=== PATIENT | male | born 2000 | race Caucasian/White ===

== ENCOUNTER 2023-02-10 09:53 | Outpatient (AMB) | payer OTHER, SELFPAY ==
--- NOTE | 2023-02-10 09:59 | A.OFFVIS_ITS ---
Intake Vital Signs 02/10/23 10:00 Height 5 ft 11 in Weight 207 lb BMI 28.9 BP 110/64 Blood Pressure Location Lt brachial Position Sitting Pulse 71 Pulse Source Pulse Oximeter Pulse Oximetry (%) 97 Oxygen Delivery Method Room Air Intake Visit Reasons: Asthma Parasitologist Required: No Railroad Purchasing Agent: Railroad Purchasing Agent offered & declined Accompanied by: Self / Same As Patient Allergies peanuts Allergy (Severe, Uncoded 02/10/23 10:16) Vomiting, hives eggs Allergy (Intermediate, Uncoded 02/10/23 10:16) Vomiting, respiratory distress Medication List - Last Reconciled 02/10/23 by Masha Ortega LPN albuterol sulfate 90 mcg/actuation 2 puffs inhalation Q4-6H PRN fluticasone propionate 110 mcg/actuation 2 puffs inhalation BID HPI Asthma HPI Details Cory is a pleasant 22 year old male, never smoker, with underlying asthma. He was referred for pulmonary evaluation by his PCP. He reports asthma since childhood. Denies any hospitalizations related to asthma. He reports increased use of his albuterol inhaler and will use upwards of 4-5 times per day. He was previously on an ICS inhaler and PCP recently prescribed Flovent, but unfortunately his insurance denied coverage. He relates his increase in symptoms of chest tightness, cough and wheezing to environmental allergies. He denies any pets. He denies any recent allergy testing. He has been using rylan PRN and recently started using flonase nasal spray with minimal improvements. [facility] Social History (Updated 02/10/23 @ 10:06 by Masha Ortega LPN) Patient Tobacco Use Status: Never used Tobacco e-Cigarette/Vaping Use: Former Use Review of Systems Const Denies chills, Denies excessive sweating, Denies fever(s), Denies headache(s) and Denies night sweats Eyes Denies dry eyes ENT Reports Normal hearing present, Denies headache(s), Denies post nasal drip and Denies sore throat Card Denies chest pain, Denies chest pain at rest, Denies chest pain with activity, Denies claudication, Denies leg edema, Denies orthopnea and Denies paroxysmal nocturnal dyspnea Resp Denies chest congestion, Denies excessive phlegm production, Denies pain on inspiration, Denies pain with cough and Denies stridor Musc Denies myalgias Neuro Reports Normal hearing present and Denies headache(s) Endo Denies excessive sweating Terry/Lymph Denies lymphadenopathy Aller/Immun Denies seasonal rhinorrhea Physical Exam Vital Signs: Last Vital Signs Pulse 71 02/10/23 10:00 BP 110/64 02/10/23 10:00 Pulse Ox 97 02/10/23 10:00 Oxygen Delivery Method Room Air 02/10/23 10:00 BMI result Body Mass Index 28.9 Const General: cooperative, healthy appearing, comfortable, no acute distress, well developed and alert Orientation/consciousness: patient oriented x3 Limitations: no limitations HEENT Head: Yes normal to inspection, Yes normocephalic and Yes atraumatic Ears: hearing grossly normal bilaterally and external ears normal Eyes General: appearance normal, both eyes and all related structures Eyelids: Yes eyelids normal Sclerae: sclerae normal EOM: EOMs intact bilaterally Neck Neck: Yes normal visual inspection and Yes no lymphadenopathy Lymphatic: no lymphadenopathy noted Chest Chest palpation & inspection: normal inspection of the chest Resp Effort & Inspection: normal respiratory effort, able to speak in complete sentences, no audible wheezes, no cough, no stridor, not tachypneic, no tripod positioning and no use of accessory muscles Auscultation: clear to auscultation bilaterally Cardio Jugular venous distension: no JVD Rate: regular rate Rhythm: regular rhythm Skin Other: warm, dry General skin exam: no rashes or lesions noted Neuro General: patient oriented x3 Cranial nerves: Yes Normal hearing present Cognition (Neuro): normal cognition Gait exam (Neuro): Normal gait present Extrem General: Yes normal to inspection, Yes capillary refill normal, Yes no clubbing, cyanosis or edema and Yes no pedal edema Psych Appearance: grossly normal and well kempt Speech and movement: Normal speech and movement present and Clear speech present Affect: normal affect Attitude: cooperative Thought process: Normal thought process present Thought content: Normal thought content present Insight: Good insight present (Psych) Judgement: Good judgement present (Psych) Assessment & Plan Assessment & Plan (1) Allergic rhinitis: Code(s): J30.9 - Allergic rhinitis, unspecified (2) Asthma: Code(s): J45.909 - Unspecified asthma, uncomplicated Plan Cory's symptoms are likely related to underlying asthma with an allergic component. Will send for PFT and RAST to thoroughly evaluate. Will empirically trial on Breo and send refill on albuterol. Patient is aware if he is unable to picker tender medication due to insurance coverage, he will call. All questions were answered and patient is in agreement of plan. Will follow up ib 6 weeks to review response to inhaler and review PFT results. Orders: Orders Rast Allergen Today J30.9 - Allergic rhinitis, unspecified Immunoglobulin E Today J30.9 - Allergic rhinitis, unspecified PFT pulmonary function test Today J45.909 - Unspecified asthma, uncomplicated Complete Blood Count Auto Diff Today J30.9 - Allergic rhinitis, unspecified Medications: New fluticasone furoate-vilanterol 100-25 mcg/dose (Breo Ellipta) 1 inh inhalation DAILY 60 ea 3RF albuterol sulfate 90 mcg/actuation 2 puffs inhalation Q4-6H PRN 1 ea 3RF shortness of breath or wheezing Coding Level of Care Code New Pt Level 3 (02072) Diagnoses Allergic rhinitis J30.9 Asthma J45.909
[2023-02-10 10:00] VITALS: BP 110/64; PULSE 71; O2SAT 97; BMI 28.9
== END 2023-02-10 10:31 | disposition home or self-care (01) ==
LOC: HO.HPSW 09:53
PROVIDERS: PCP Internal Medicine; Referring Provider Internal Medicine; Visit Provider Nurse Practitioner Family
DX: J30.9 Allergic rhinitis, unspecified (principal); J45.909 Unspecified asthma, uncomplicated
CPT/HCPCS: 99203

== ENCOUNTER 2023-02-10 10:35 | Outpatient (REF) | payer OTHER, SELFPAY ==
[2023-02-10 14:28] LABS: MANUAL DIFF FLAG NO
[2023-02-10 14:45] LABS: Basophils Absolute Auto 0.1 X10*3/uL (0.0-0.2); Basophils Percent Auto 1.1 % (0-2); Eosinophils Percent Auto 18.8 % (0-4); Hematocrit 45.9 % (42.0-52.0); Hemoglobin 15.7 g/dl (14.0-18.0); Imm Gran Abs Auto 0.01 X10*3/uL (0.00-0.03); Imm Gran Pct Auto 0.2 % (0.0-0.4); Lymphocytes Absolute Auto 1.2 X10*3/uL (1.2-4.9); Lymphocytes Percent Auto 22.5 % (20-40); Mean Corpuscular HGB Conc 34.2 g/dl (31.0-36.0); Mean Corpuscular Hemoglobin 29.5 pg (27.0-33.0); Mean Corpuscular Volume 86.3 fL (80.0-98.0); Mean Platelet Volume 11.4 fL (9.4-12.4); Monocytes Absolute Auto 0.5 X10*3/uL (0.1-1.2); Monocytes Percent Auto 8.6 % (2-11); Neutrophils Absolute Auto 2.6 x10*3/uL (2.0-8.3); Neutrophils Percent Auto 48.8 % (45-73); Platelet Count 261 X10*3/uL (160-400); Red Blood Count 5.32 X10*6/uL (4.60-5.80); Red Cell Distribution Width 12.3 % (11.0-16.0); White Blood Count 5.4 X10*3/uL (4.8-10.8)
[2023-02-12 07:09] LABS: Immunoglobulin E 1003 kU/L (<OR=114)
== END 2023-02-10 10:36 | disposition home or self-care (01) ==
LOC: HO.WFDLDS 10:35
PROVIDERS: Visit Provider Nurse Practitioner Family
DX: J30.9 Allergic rhinitis, unspecified (principal); Z01.82 Encounter for allergy testing; Z91.048 Other nonmedicinal substance allergy status
CPT/HCPCS: 36415; 82785; 85025; 86003

== ENCOUNTER 2023-03-17 08:50 | Outpatient (REF) | payer OTHER, SELFPAY ==
--- NOTE | 2023-03-17 09:42 | PFT_ITS ---
Forced vital capacity 97%, FEV1 74%, FEV1/FVC ratio is 63. [id number] 43% and MVV 45%. Post bronchodilator therapy, there is no change. Total lung capacity 90%. Residual volume 53%. Diffusion capacity 91%. CONCLUSION: Mild obstructive airway disorder. No response to bronchodilator therapy. Clinical correlation recommended. MD JENIFFER Arora/ANAID / [id number]
== END 2023-03-17 08:51 | disposition home or self-care (01) ==
LOC: HO.RESP 08:50
PROVIDERS: PCP Internal Medicine; Visit Provider Nurse Practitioner Family
DX: J45.909 Unspecified asthma, uncomplicated (principal)
CPT/HCPCS: 94010; 94727; 94729

== ENCOUNTER → 2023-03-17 09:42 | Outpatient (BNV) | payer OTHER, SELFPAY | PROVIDERS: PCP Internal Medicine; Visit Provider Internal Medicine | DX: J45.909 Unspecified asthma, uncomplicated (principal) | CPT/HCPCS: 94060; 94727; 94729 ==

== ENCOUNTER 2023-03-25 08:29 | Outpatient (AMB) | payer OTHER, SELFPAY ==
[2023-03-25 08:37] VITALS: BP 118/68; PULSE 76; O2SAT 97; BMI 28.7
--- NOTE | 2023-03-25 08:37 | MHC.OFFVIS ---
Intake Vital Signs 03/25/23 08:37 Height 5 ft 11 in Weight 206 lb BMI 28.7 BP 118/68 Blood Pressure Location Rt brachial Position Sitting Pulse 76 Pulse Source Pulse Oximeter Pulse Oximetry (%) 97 Oxygen Delivery Method Room Air Intake Visit Reasons: 6 week f/u Career And Transition Teacher Required: No Colon Therapist: Colon Therapist offered & declined Accompanied by: Self / Same As Patient Allergies peanuts Allergy (Severe, Uncoded 03/25/23 08:43) Vomiting, hives eggs Allergy (Intermediate, Uncoded 03/25/23 08:43) Vomiting, respiratory distress Medication List - Last Reconciled 03/25/23 by Masha Ortega LPN albuterol sulfate 90 mcg/actuation 2 puffs inhalation Q4-6H PRN albuterol sulfate 90 mcg/actuation 2 puffs inhalation Q4-6H PRN fluticasone furoate-vilanterol 100-25 mcg/dose (Breo Ellipta) 1 inh inhalation DAILY fluticasone propionate 110 mcg/actuation 2 puffs inhalation BID HPI 6 week f/u HPI Details Cory is a pleasant 22 year old male, never tobacco smoker, with underlying asthma since childhood and environmental allergies. He was previously on Flovent with suboptimal control, requiring albuterol upwards of 5 times per day. Today he presents to review response to Breo as well as PFT and RAST results. [facility] Medical History (Updated 03/26/23 @ 09:38 by Sandra Peterson NP) Asthma Allergic rhinitis Social History (Updated 03/25/23 @ 08:45 by Masha Ortega LPN) Patient Tobacco Use Status: Never used Tobacco e-Cigarette/Vaping Use: Former Use Review of Systems Const Denies chills, Denies excessive sweating, Denies fever(s), Denies headache(s) and Denies night sweats Eyes Denies dry eyes ENT Reports Normal hearing present, Denies headache(s), Denies post nasal drip and Denies sore throat Card Denies chest pain, Denies chest pain at rest, Denies chest pain with activity, Denies claudication, Denies leg edema, Denies orthopnea and Denies paroxysmal nocturnal dyspnea Resp Denies chest congestion, Denies excessive phlegm production, Denies pain on inspiration, Denies pain with cough and Denies stridor Musc Denies myalgias Neuro Reports Normal hearing present and Denies headache(s) Endo Denies excessive sweating Terry/Lymph Denies lymphadenopathy Physical Exam Vital Signs: Last Vital Signs Pulse 76 03/25/23 08:37 BP 118/68 03/25/23 08:37 Pulse Ox 97 03/25/23 08:37 Oxygen Delivery Method Room Air 03/25/23 08:37 BMI result Body Mass Index 28.7 Const General: cooperative, healthy appearing, comfortable, no acute distress, well developed and alert Orientation/consciousness: patient oriented x3 Limitations: no limitations HEENT Head: Yes normal to inspection, Yes normocephalic and Yes atraumatic Ears: hearing grossly normal bilaterally and external ears normal Eyes General: appearance normal, both eyes and all related structures Eyelids: Yes eyelids normal Sclerae: sclerae normal EOM: EOMs intact bilaterally Neck Neck: Yes normal visual inspection and Yes no lymphadenopathy Lymphatic: no lymphadenopathy noted Chest Chest palpation & inspection: normal inspection of the chest Resp Effort & Inspection: normal respiratory effort, able to speak in complete sentences, no audible wheezes, no cough, no stridor, not tachypneic, no tripod positioning and no use of accessory muscles Auscultation: clear to auscultation bilaterally Cardio Jugular venous distension: no JVD Rate: regular rate Rhythm: regular rhythm Skin Other: warm, dry General skin exam: no rashes or lesions noted Neuro General: patient oriented x3 Cranial nerves: Yes Normal hearing present Cognition (Neuro): normal cognition Gait exam (Neuro): Normal gait present Extrem General: Yes normal to inspection, Yes capillary refill normal, Yes no clubbing, cyanosis or edema and Yes no pedal edema Psych Appearance: grossly normal and well kempt Speech and movement: Normal speech and movement present and Clear speech present Affect: normal affect Attitude: cooperative Thought process: Normal thought process present Thought content: Normal thought content present Insight: Good insight present (Psych) Judgement: Good judgement present (Psych) Results Reviewed Results Reviewed: Assessment & Plan Assessment & Plan (1) Asthma: Code(s): J45.909 - Unspecified asthma, uncomplicated (2) Environmental allergies: Code(s): Z91.09 - Other allergy status, other than to drugs and biological substances Plan Reviewed RAST which revealed multiple allergens, copy given to patient and reviewed ways to minimize allergen exposures. Reviewed PFT which revealed mild to moderate obstruction with FEV1/FVC ratio of 63 and FEV1 74%. There was no significant response to bronchodilation except is small to medium airways. Lung volumes and DLCO within normal limits. Given the degree of obstruction and age, will send for chest CT to evaluate for parenchymal conditions such as emphysema. Advised patient to continue on Breo. Briefly discussed biologics given his significant allergic component and IgE of >1000, but will defer at this time, as he feels his symptoms are well controlled. All questions were answered and patient is in agreement of plan. Will follow up in 6 months or sooner if needed. Orders: Orders CT chest wo IV con Today J44.9 - Chronic obstructive pulmonary disease, unspecified Medications: Refilled fluticasone furoate-vilanterol 100-25 mcg/dose (Breo Ellipta) 1 inh inhalation DAILY 120 ea 1RF Coding Level of Care Code Est Pt Level 4 (45632) Diagnoses Asthma J45.909 Environmental allergies Z91.09
== END 2023-03-25 09:15 | disposition home or self-care (01) ==
PROVIDERS: PCP Internal Medicine; Visit Provider Nurse Practitioner Family
DX: J45.909 Unspecified asthma, uncomplicated (principal); Z91.09 Other allergy status, other than to drugs and biological substances
CPT/HCPCS: 99214

== ENCOUNTER → 2023-03-25 08:29 | Outpatient (BNVA) | payer OTHER, SELFPAY | PROVIDERS: PCP Internal Medicine; Visit Provider Nurse Practitioner Family ==

== ENCOUNTER 2023-04-30 16:27 | Outpatient (REF) | payer OTHER, SELFPAY | END 2023-04-30 16:28 | disposition home or self-care (01) | LOC: HO.CT 16:27 | PROVIDERS: PCP Internal Medicine; Visit Provider Nurse Practitioner Family | DX: J44.9 Chronic obstructive pulmonary disease, unspecified (principal) | CPT/HCPCS: 71250 ==

== ENCOUNTER 2023-09-17 08:43 | Outpatient (AMB) | payer OTHER, SELFPAY ==
[2023-09-17 08:48] VITALS: BP 120/64; PULSE 67; O2SAT 99; BMI 28.9
--- NOTE | 2023-09-17 08:48 | MHC.OFFVIS ---
Vital Signs 09/17/23 08:48 Height 5 ft 11 in Weight 207 lb 4 oz BMI 28.9 BP 120/64 Blood Pressure Location Lt brachial Position Sitting Pulse 67 Pulse Source Pulse Oximeter Pulse Oximetry (%) 99 Oxygen Delivery Method Room Air Intake Visit Reasons: asthma Allergies peanuts Allergy (Severe, Uncoded 09/17/23 08:50) Vomiting, hives eggs Allergy (Intermediate, Uncoded 09/17/23 08:50) Vomiting, respiratory distress HPI HPI asthma: Details: Cory is a pleasant 22 year old male, never tobacco smoker, with underlying asthma since childhood and environmental allergies. He was previously on Flovent with suboptimal control, requiring albuterol upwards of 5 times per day. At the last visit, he was switched to Breo and has reported excellent control respiratory symptoms, rarely requiring albuterol. He has noticed an increase in allergic symptoms over the last few weeks, using antihistamines p.r.n. with good effect. Today he presents for routine follow-up. [facility] Medical History (Updated 03/26/23 @ 09:38 by Sandra Peterson NP) Asthma Allergic rhinitis Social History Patient Tobacco Use Status: Never used Tobacco e-Cigarette/Vaping Use: Former Use Review of Systems Const Denies chills, Denies excessive sweating, Denies fever(s), Denies headache(s) and Denies night sweats Eyes Denies dry eyes, Denies irritation and Denies itchy eyes ENT Reports Normal hearing present, Denies headache(s), Denies nasal congestion, Denies nasal discharge, Denies post nasal drip and Denies sore throat Card Denies chest pain, Denies chest pain at rest, Denies chest pain with activity, Denies claudication, Denies leg edema, Denies dyspnea, Denies dyspnea on exertion, Denies orthopnea and Denies paroxysmal nocturnal dyspnea Resp Denies chest congestion, Denies cough, Denies excessive phlegm production, Denies pain on inspiration, Denies pain with cough, Denies dyspnea, Denies dyspnea on exertion, Denies stridor and Denies wheezing Musc Denies myalgias Neuro Reports Normal hearing present and Denies headache(s) Endo Denies excessive sweating Terry/Lymph Denies lymphadenopathy Aller/Immun Denies itchy eyes, Denies seasonal rhinorrhea and Denies wheezing Physical Exam Vital Signs: Last Vital Signs Pulse 67 09/17/23 08:48 BP 120/64 09/17/23 08:48 Pulse Ox 99 09/17/23 08:48 Oxygen Delivery Method Room Air 09/17/23 08:48 BMI result Body Mass Index 28.9 Const General: cooperative, healthy appearing, comfortable, no acute distress, well developed and alert Orientation/consciousness: patient oriented x3 Limitations: no limitations HEENT Head: Yes normal to inspection, Yes normocephalic and Yes atraumatic Ears: hearing grossly normal bilaterally and external ears normal Eyes General: appearance normal, both eyes and all related structures Eyelids: Yes eyelids normal Sclerae: sclerae normal EOM: EOMs intact bilaterally Neck Neck: Yes normal visual inspection and Yes no lymphadenopathy Lymphatic: no lymphadenopathy noted Chest Chest palpation & inspection: normal inspection of the chest Resp Effort & Inspection: normal respiratory effort, able to speak in complete sentences, no audible wheezes, no cough, no stridor, not tachypneic, no tripod positioning and no use of accessory muscles Auscultation: clear to auscultation bilaterally Cardio Jugular venous distension: no JVD Rate: regular rate Rhythm: regular rhythm Skin Other: warm, dry General skin exam: no rashes or lesions noted Neuro General: patient oriented x3 Cranial nerves: Yes Normal hearing present Cognition (Neuro): normal cognition Gait exam (Neuro): Normal gait present Extrem General: Yes normal to inspection, Yes capillary refill normal, Yes no clubbing, cyanosis or edema and Yes no pedal edema Psych Appearance: grossly normal and well kempt Speech and movement: Normal speech and movement present and Clear speech present Affect: normal affect Attitude: cooperative Thought process: Normal thought process present Thought content: Normal thought content present Insight: Good insight present (Psych) Judgement: Good judgement present (Psych) Assessment & Plan Assessment & Plan (1) Asthma: Code(s): J45.909 - Unspecified asthma, uncomplicated Category: Medical (2) Environmental allergies: Code(s): Z91.09 - Other allergy status, other than to drugs and biological substances Category: Medical Plan At this time advised patient to continue current regimen, as he is doing well with Breo. He is aware to call the office if symptoms become less controlled. All questions were answered and patient is in agreement of plan. Will follow up in 6 months or sooner if needed. Coding Level of Care Code Est Pt Level 3 (01621) Diagnoses Asthma J45.909 Environmental allergies Z91.09
== END 2023-09-17 09:07 | disposition home or self-care (01) ==
PROVIDERS: PCP Internal Medicine; Visit Provider Nurse Practitioner Family
DX: J45.909 Unspecified asthma, uncomplicated (principal); Z91.09 Other allergy status, other than to drugs and biological substances
CPT/HCPCS: 99213

== ENCOUNTER → 2023-09-17 08:43 | Outpatient (BNVA) | payer OTHER, SELFPAY | PROVIDERS: PCP Internal Medicine; Visit Provider Nurse Practitioner Family ==

== ENCOUNTER 2024-03-24 09:30 | Outpatient (AMB) | payer OTHER, SELFPAY ==
--- NOTE | 2024-03-24 09:22 | A.OFFVIS_ITS ---
Vital Signs 03/24/24 09:33 Height 5 ft 11 in Weight 209 lb 2 oz BMI 29.2 BP 110/58 L Blood Pressure Location Rt brachial Position Sitting Pulse 69 Pulse Source Pulse Oximeter Pulse Oximetry (%) 98 Oxygen Delivery Method Room Air Intake Visit Reasons: Asthma Allergies peanuts Allergy (Severe, Uncoded 03/24/24 09:36) Vomiting, hives eggs Allergy (Intermediate, Uncoded 03/24/24 09:36) Vomiting, respiratory distress HPI HPI Asthma: Details: Cory is a pleasant 23 year old male, never tobacco smoker, with underlying asthma since childhood and environmental allergies. He continues to report excellent control using Breo, rarely requiring albuterol. He does report seasonal allergies that are minimal, using an antihistamine PRN. He denies any visits to urgent care or hospitalizations since the last visit related to respiratory distress. Today he presents for routine follow-up. [facility] Medical History (Updated 03/26/23 @ 09:38 by Sandra Peterson NP) Asthma Allergic rhinitis Social History (Updated 03/24/24 @ 09:35 by Rubi Cavazos CMA) Patient Tobacco Use Status: Former Tobacco user e-Cigarette/Vaping Use: Former Use Review of Systems Const Denies chills, Denies excessive sweating, Denies fever(s), Denies headache(s) and Denies night sweats Eyes Denies dry eyes, Denies irritation and Denies itchy eyes ENT Reports Normal hearing present, Denies headache(s), Denies nasal congestion, De nies nasal discharge, Denies post nasal drip and Denies sore throat Card Denies chest pain, Denies chest pain at rest, Denies chest pain with activity, Denies claudication, Denies leg edema, Denies dyspnea, Denies dyspnea on exertion, Denies orthopnea and Denies paroxysmal nocturnal dyspnea Resp Denies chest congestion, Denies cough, Denies excessive phlegm production, Denies pain on inspiration, Denies pain with cough, Denies dyspnea, Denies dyspnea on exertion, Denies stridor and Denies wheezing Musc Denies myalgias Neuro Reports Normal hearing present and Denies headache(s) Endo Denies excessive sweating Terry/Lymph Denies lymphadenopathy Aller/Immun Denies itchy eyes, Denies seasonal rhinorrhea and Denies wheezing Physical Exam Vital Signs: Last Vital Signs Pulse 69 03/24/24 09:33 BP 110/58 L 03/24/24 09:33 Pulse Ox 98 03/24/24 09:33 Oxygen Delivery Method Room Air 03/24/24 09:33 BMI result Body Mass Index 29.2 Const General: cooperative, healthy appearing, comfortable, no acute distress, well developed and alert Orientation/consciousness: patient oriented x3 Limitations: no limitations HEENT Head: Yes normal to inspection, Yes normocephalic and Yes atraumatic Ears: hearing grossly normal bilaterally and external ears normal Eyes General: appearance normal, both eyes and all related structures Eyelids: Yes eyelids normal Sclerae: sclerae normal EOM: EOMs intact bilaterally Neck Neck: Yes normal visual inspection and Yes no lymphadenopathy Lymphatic: no lymphadenopathy noted Chest Chest palpation & inspection: normal inspection of the chest Resp Effort & Inspection: normal respiratory effort, able to speak in complete sentences, no audible wheezes, no cough, no stridor, not tachypneic, no tripod positioning and no use of accessory muscles Auscultation: clear to auscultation bilaterally Cardio Jugular venous distension: no JVD Rate: regular rate Rhythm: regular rhythm Skin Other: warm, dry General skin exam: no rashes or lesions noted Neuro General: patient oriented x3 Cranial nerves: Yes Normal hearing present Cognition (Neuro): normal cognition Gait exam (Neuro): Normal gait present Extrem General: Yes normal to inspection, Yes capillary refill normal, Yes no clubbing, cyanosis or edema and Yes no pedal edema Psych Appearance: grossly normal and well kempt Speech and movement: Normal speech and movement present and Clear speech present Affect: normal affect Attitude: cooperative Thought process: Normal thought process present Thought content: Normal thought content present Insight: Good insight present (Psych) Judgement: Good judgement present (Psych) Assessment & Plan Assessment & Plan (1) Asthma: Code(s): J45.909 - Unspecified asthma, uncomplicated Category: Medical (2) Environmental allergies: Code(s): Z91.09 - Other allergy status, other than to drugs and biological substances Category: Medical Plan Coyr reports excellent control of symptoms on Breo and albuterol MDI, advised to continue. He is aware to call the office if symptoms become less controlled or needs to be seen for an acute visit. All questions were answered and patient is in agreement of plan. Will follow up in 9-12 months or sooner if needed. Medications: Refilled albuterol sulfate 90 mcg/actuation 2 puffs inhalation Q4-6H PRN 1 ea 3RF shortness of breath or wheezing fluticasone furoate-vilanterol 100-25 mcg/dose (Breo Ellipta) 1 inh inhalation DAILY 180 ea 4RF 90 days Coding Level of Care Code Est Pt Level 3 (26933) Diagnoses Asthma J45.909 Environmental allergies Z91.09
[2024-03-24 09:33] VITALS: BP 110/58; PULSE 69; O2SAT 98; BMI 29.2
== END 2024-03-24 09:46 | disposition home or self-care (01) ==
PROVIDERS: PCP Internal Medicine; Visit Provider Nurse Practitioner Family
DX: J45.909 Unspecified asthma, uncomplicated (principal); Z91.09 Other allergy status, other than to drugs and biological substances
CPT/HCPCS: 99213

== ENCOUNTER → 2024-03-24 09:30 | Outpatient (BNVA) | payer OTHER, SELFPAY | PROVIDERS: PCP Internal Medicine; Visit Provider Nurse Practitioner Family ==

== ENCOUNTER 2025-03-23 12:47 | Outpatient (AMB) | payer OTHER, SELFPAY ==
--- NOTE | 2025-03-23 12:55 | MHC.OFFVIS ---
Vital Signs 03/23/25 13:02 Height 5 ft 11 in Weight 171 lb BMI 23.8 BP 116/58 L Blood Pressure Location Rt brachial Position Sitting Pulse 67 Pulse Source Pulse Oximeter Pulse Oximetry (%) 97 Oxygen Delivery Method Room Air Intake Visit Reasons: Asthma Allergies peanuts Allergy (Severe, Uncoded 03/23/25 13:05) Vomiting, hives eggs Allergy (Intermediate, Uncoded 03/23/25 13:05) Vomiting, respiratory distress HPI HPI Asthma: Details: Cory is a pleasant 24 year old male, never tobacco smoker, with underlying asthma since childhood and environmental allergies. He continues to report excellent control using Breo, rarely requiring albuterol. He reports intermittent chest tightness and dyspnea which is precipitated by anxiety and is seeing a counselor regarding this. He does report seasonal allergies that are tolerable using an antihistamine PRN. Since the last visit he underwent food and environmental allergy testing, revealing multiple allergens and prescribed an Epi Pen. He was offered allergen immunotherapy however could not commit at this time. He denies any visits to urgent care or hospitalizations since the last visit related to respiratory distress. Today he presents for routine follow-up. [facility] Medical History (Updated 03/26/23 @ 09:38 by Sandra Peterson NP) Asthma Allergic rhinitis Social History Patient Tobacco Use Status: Former Tobacco user e-Cigarette/Vaping Use: Former Use Review of Systems Const Denies chills, Denies excessive sweating, Denies fever(s), Denies headache(s) and Denies night sweats Eyes Denies dry eyes, Denies irritation and Denies itchy eyes ENT Reports Normal hearing present, Denies headache(s), Denies nasal congestion, Denies nasal discharge, Denies post nasal drip and Denies sore throat Card Denies chest pain, Denies chest pain at rest, Denies chest pain with activity, Denies claudication, Denies leg edema, Denies dyspnea, Denies dyspnea on exertion, Denies orthopnea and Denies paroxysmal nocturnal dyspnea Resp Denies chest congestion, Denies cough, Denies excessive phlegm production, Denies pain on inspiration, Denies pain with cough, Denies dyspnea, Denies dyspnea on exertion, Denies stridor and Denies wheezing Musc Denies myalgias Neuro Reports Normal hearing present and Denies headache(s) Endo Denies excessive sweating Terry/Lymph Denies lymphadenopathy Aller/Immun Denies itchy eyes, Denies seasonal rhinorrhea and Denies wheezing Physical Exam Vital Signs: Last Vital Signs Pulse 67 03/23/25 13:02 BP 116/58 L 03/23/25 13:02 Pulse Ox 97 03/23/25 13:02 Oxygen Delivery Method Room Air 03/23/25 13:02 BMI result Body Mass Index 23.8 Const General: cooperative, healthy appearing, comfortable, no acute distress, well developed and alert Orientation/consciousness: patient oriented x3 Limitations: no limitations HEENT Head: Yes normal to inspection, Yes normocephalic and Yes atraumatic Ears: hearing grossly normal bilaterally and external ears normal Eyes General: appearance normal, both eyes and all related structures Eyelids: Yes eyelids normal Sclerae: sclerae normal EOM: EOMs intact bilaterally Neck Neck: Yes normal visual inspection and Yes no lymphadenopathy Lymphatic: no lymphadenopathy noted Chest Chest palpation & inspection: normal inspection of the chest Resp Effort & Inspection: normal respiratory effort, able to speak in complete sentences, no audible wheezes, no cough, no stridor, not tachypneic, no tripod positioning and no use of accessory muscles Auscultation: clear to auscultation bilaterally Cardio Jugular venous distension: no JVD Rate: regular rate Rhythm: regular rhythm Skin Other: warm, dry General skin exam: no rashes or lesions noted Neuro General: patient oriented x3 Cranial nerves: Yes Normal hearing present Cognition (Neuro): normal cognition Gait exam (Neuro): Normal gait present Extrem General: Yes normal to inspection, Yes capillary refill normal, Yes no clubbing, cyanosis or edema and Yes no pedal edema Psych Appearance: grossly normal and well kempt Speech and movement: Normal speech and movement present and Clear speech present Affect: normal affect Attitude: cooperative Thought process: Normal thought process present Thought content: Normal thought content present Insight: Good insight present (Psych) Judgement: Good judgement present (Psych) Assessment & Plan Assessment & Plan (1) Asthma: Code(s): J45.909 - Unspecified asthma, uncomplicated Category: Medical (2) Environmental allergies: Code(s): Z91.09 - Other allergy status, other than to drugs and biological substances Category: Medical Plan At this time, patient reports good control of respiratory symptoms on current regimen, advised to continue and consider use of Albuterol MDI. He is aware to call the office if symptoms become less controlled or needs to be seen for an acute visit. Will repeat PFT given prior was from 2022. All questions were answered and patient is in agreement of plan. Will follow up in 9-12 months or sooner if needed. Orders: Orders PFT pulmonary function test 10 Months J45.909 - Unspecified asthma, uncomplicated Medications: Refilled albuterol sulfate 90 mcg/actuation 2 puffs inhalation Q4-6H PRN 1 ea 3RF shortness of breath or wheezing fluticasone furoate-vilanterol 100-25 mcg/dose (Breo Ellipta) 1 inh inhalation DAILY 180 ea 4RF 90 days Coding Level of Care Code Est Pt Level 4 (94341) Diagnoses Asthma J45.909 Environmental allergies Z91.09
[2025-03-23 13:02] VITALS: BP 116/58; PULSE 67; O2SAT 97; BMI 23.8
--- OUTSIDE RECORDS SUMMARY | 2025-03-23 15:23 | XMS_ITS | Clinical Summary ---
Author Organization [facility] Address [address] [place] [address] Phone Care Team Providers Care Scrap Breaker Name Role Phone Unavailable Primary Care Provider Unavailabl e Allergies Active Allergy Reactions Criticality Noted Date Comments Egg Protein-Containing Drug Products Peanuts (Food) Medications EPINEPHrine (EPIPEN 2-CARISSA) 0.3 MG/0.3ML injection syringe Inject 0.3 mg into the muscle. Active montelukast (Singulair) 10 MG tabletIndication s:Mild persistent asthma without complication Take 1 tablet (10 mg total) by mouth nightly. 90 tablet 3 0 Active albuterol HFA (ProAir HFA) 108 (90 Base) MCG/ACT inhalerIndicatio ns:Mild persistent asthma, unspecified whether complicated Inhale 2 puffs every 6 (six) hours as needed for wheezing. 1 Units 3 0 Active Flovent HFA 44 MCG/ACT inhalerIndicatio ns:Mild persistent asthma without complication USE 2 INHALATIONS TWICE A DAY. RINSE MOUTH WITH WATER AFTER USE, DO NOT SWALLOW 1 Units 3 0 Active Active Problems Problem Noted Date Diagnosed Date Mild persistent asthma without complication 12/10 Assessment & Plan (01/01/2018 1:43 PM EDT): Occasional has issues; uses albuterol as needed. Allergic rhinitis 03/05/2015 Egg allergy 03/05/2015 Food allergy, peanut 03/05/2015 Assessment & Plan (01/01/2018 1:43 PM EDT): Has epipen. Immunizations Immunization Administration Dates Next Due DTaP 08/02/2004,,05/28/2000,03/27,02/06/2000 HPV Vaccine 9 Valent 12/26/2016,03/21/2015,01/19 Hep A, ped/adol 01/01/2018,12/26/2016 Hep B, ped/adol 09/22/2000,01/01/2000,1999 Hib (PRP-T) 04/01/2001, 1,03/27/2000,02/05 IPV 08/02/2004, 1,03/27/2000,02/05 Influenza, injectable, quadr ivalent, preservative free 01/11/2020,02/23/2019 MMR 12/23/2003,01/18/2001 Meningococcal B Bexsero 02/23/2019,01/06/2019 Meningococcal Conj (Menactra) MCV4P 12/26/2016,0 05/15/2011 Pneumococcal Conjugate 04/01/2001,2000,03/27/2000,02/05 Td (adult) (MBL), 2 Lf tetan us toxoid, PF, adsorbed 11/23/2018 Tdap 05/15/2011 Varicella 03/10/2008,12/06/2000 Family History Medical History Relation Name Comments No Known Problems Brother Cristiano No Known Problems Mother Relation Name Status Comments Brother Cristiano Alive Father healthy Maternal Grandfather Alive melanom a Maternal Grandmother Alive Mother Alive healthy Other Siblings: healt hy Paternal Grandfather Alive cancer Paternal Grandmother Alive cancer, breast Social History Tobacco Use Types Packs/Day Years Used Date Smoking Tobacco: Never Smokeless Tobacco: Never Alcohol Use Standard Drinks/Week Comments No 0 (1 standard drink = 0.6 oz pur e alcohol) Hunger/Food Answer Date Recorded In the last 12 months, did y ou or your family ever eat less than you felt you should because there wasn't enough money for food? No 01/11/2020 Stable Housing Answer Date Recorded Are you worried that in the next 2 months you may not have stable housing? No 01/11/2020 Transportation Concerns Answer Date Rec orded In the last 12 months, have you or your family ever had to go without healthcare because you didn't have a way to get there? No 01/11/2020 Hazards in Home Answer Date Recorded Think about the place you li ve. Do you have problems with any of the following? Pests (mice or roaches), mold, no/not working smoke detectors, water leaks, no window guards. No 2019 Financing Utilities Answer Date Recorde d In the last 12 months, has t he electric, gas, oil, or water company threatened to shut off your services in your home? No 01/11/2020 Safety at Home Answer Date Recorded Are you or your family worried about feeling saf e in your home? No 01/11/2020 Outside Support Answer Date Recorded Do you feel that you need mo re support from other people or programs to help you care for yourself or your family? No 01/11/2020 Understanding Health Concerns Answer Da te Recorded Do you need help understandi ng your or your child's healthcare needs (diagnosis, medications, plan, etc.)? No 01/11/2020 Financing Health Concerns Answer Date R ecorded In the last 12 months, was t here a time when your child needed to see a doctor or get medications or supplies but could not because of cost? No 01/11/2020 Missing School or Work Answer Date Kavon rded Did you or your child miss s chool or work because of a health problem that could have been avoided? No 01/11/2020 Sex and Gender Information Value Date Recorded Sex Assigned at Male 01/06/2019 3:17 PM EDT Legal Sex Male 6:21 PM EDT Gender Identity Male 01/06/2019 3:17 PM EDT Sexual Orientation Straight 01/06/2019 3: 17 PM EDT Last Filed Vital Signs Vital Sign Reading Time Taken Comments Blood Pressure 132/70 01/11/2020 1:55 PM EDT Pulse 87 02/21/2010 12:00 AM EDT Temperature 37.1 C (98.8 F) 02/23/2019 8:58 AM EDT Respiratory Rate - - Oxygen Saturation 95% 02/21/2010 12:00 AM EDT Inhaled Oxygen Concentration - - Weight 83 kg (183 lb) 01/11/2020 1:55 PM EDT Height 179.1 cm (5' 10.5 ) 01/11/2020 1:55 PM ED T Body Mass Index 25.89 01/11/2020 1:55 PM EDT Plan of Treatment Health Maintenance Due Date Last Done Comments Influenza Vaccines (#1) 2024 01/11/2020, 02/23 COVID-19 Vaccine (2024-2 6 season) 2025 04/19/2021, 09/06/2020, 08/16/2020 DTaP,Tdap,and Td Vaccines (8 - Td or Tdap) 11/23/2028 11/23/2018, 05/15/2011, 08/02/2004, Additional history exists Hepatitis B Vaccines Completed 09/22/2000, 01/01/2000, 1999 HIB Vaccines Completed 04/01/2001, 05/12, 03/27/2000, Additional history exists Pneumococcal Vaccine Completed 04/01/2001, 05/28/2000, 03/27/2000, Additional history exists MMR Vaccines Completed 12/23/2003, 01/18/2001 IPV Vaccines Completed 08/02/2004, 09/09, 03/27/2000, Additional history exists Varicella Vaccines Completed 03/10/2008, 12/06/2000 HPV Vaccines Completed 12/26/2016, 03/12, 01/19/2015 Meningococcal Vaccine Completed 12/26/2016, 012 Hepatitis A Vaccines Completed 01/01/2018, 12/27/19 17 Men B Vaccine Completed 02/23/2019, 01/06/2019 Chlamydia and Gonorrhea Screening Discontinued 01/11/2020, 01/06/2019, 01/01/2018, Additional history exists Procedures * Due to [place] [employer] law, this organization might not be sharing sensitive test results. Procedure Name Priority Date/Time Associated Diagnosis Comments CHLAMYDIA AND GONORRHEA, AMPLIFIED Routine 01/11/2020 2:08 PM EDT Encounter for screening examination for sexually transmitted disease from Last 3 Months or Most Recently Relevant to Health Maintenance Results * Due to [place] [employer] law, this organization might not be sharing sensitive test results. * Chlamydia and Gonorrhoea, Amplified (01/11/2020 2:08 PM EDT) Chlamydia Trachomatis, DNA Probe NOT DETECTED (NEG) [facility] Comment:Reference range: NOT DETECTED URINE GC AMP PROBE NOT DETECTED (NEG) [facility] Comment: Reference range: NOT DETECTED (NOTE) The analytical performance characteristics of this assay, when used to test SurePath(TM) specimens have been determined by [employer]. The modifications have not been cleared or approved by the FDA. This assay has been validated pursuant to the CLIA regulations and is used for clinical purposes. = For additional information, please refer to https://education.[employer]/faq/ZLF954 (This link is being provided for information/ educational purposes only.) = Test Performed by: [facility], [address] [place] [address]. [id number]. Transmission Tester: Avery Woodruff MD. Testing performed or reported by [facility], a Service of [facility], [address] [place] [id number] Kwaku Sainz MD, Director Medicaid Urine (Urine) 01/11/2020 2:0 8 PM EDT 01/11/2020 9:55 PM EDT Kayden Garcia MD LAB MICROBIOLOGY - GENERAL OR DERABLES Final Result [facility] from Last 3 Months or Most Recently Relevant to Health Maintenance Insurance [employer]
--- OUTSIDE RECORDS SUMMARY | 2025-03-23 15:23 | XMS_ITS | Clinical Summary ---
Author Organization [facility] Address [address] [place] [address] Care Team Providers Care Military Technician Name Role Phone Unavailable Primary Care Provider Unavailabl e Social History Tobacco Use Types Packs/Day Years Used Date Smoking Tobacco: Never Assessed Sex and Gender Information Value Date Recorded Sex Assigned at Not on file Legal Sex Male 9:49 AM EST Gender Identity Not on file Sexual Orientation Not on file Plan of Treatment Health Maintenance Due Date Last Done Comments HPV Vaccines (1 - Male 3-dos e series) 11/25/2014 DTaP,Tdap,and Td Vaccines (1 - Tdap) 11/25/2018 Hepatitis B Vaccines (1 of 3 - 19+ 3-dose series) 11/25/2018 Depression Screening 05/12/2024 COVID-19 Vaccine (1 - 2024-2 6 season) 2025 Influenza Vaccine (#1) 2025 RSV Immunization Adult Patie nts (1 - 1-dose 75+ series) 11/25/2074 HIB Vaccines Aged Out No longer eligi ble based on patient's age to complete this topic Hepatitis A Vaccines Aged Out No long er eligible based on patient's age to complete this topic IPV Vaccines Aged Out No longer eligi ble based on patient's age to complete this topic MMR Vaccines Aged Out No longer eligi ble based on patient's age to complete this topic Meningococcal ACWY Vaccine Aged Out N o longer eligible based on patient's age to complete this topic Meningococcal B Vaccine Aged Out No l onger eligible based on patient's age to complete this topic Pneumococcal Vaccine: Pediat rics (0 to 5 Years) and At-Risk Patients (6 to 49 Years) Aged Out No longer eligible b ased on patient's age to complete this topic RSV Immunization Patients Un meggan 20 months Aged Out No longer eligible b ased on patient's age to complete this topic Varicella Vaccines Aged Out No longer eligible based on patient's age to complete this topic
--- OUTSIDE RECORDS SUMMARY | 2025-03-23 15:23 | XMS_ITS | Encounter Summary ---
Author Organization [facility] Address [address] [place] [id number] Phone Care Team Providers Care Tube Cutter Name Role Phone Raghu Mena MD Primary Care Provider Encounter Details Date Type Department Care Team (Late st Contact Info) Description 09/28/2017 Conversion [facility]counter [facility] [id number] [place] [address] Raghu Mena MD [address] [place] [id number] Social History Tobacco Use Types Packs/Day Years Used Date Smoking Tobacco: Never Assessed Sex and Gender Information Value Date Recorded Sex Assigned at Male 01/06/2019 3:17 PM EDT Legal Sex Male 6:21 PM EDT Gender Identity Male 01/06/2019 3:17 PM EDT Sexual Orientation Straight 01/06/2019 3: 17 PM EDT documented as of this encounter Plan of Treatment Not on file documented as of this encounter Visit Diagnoses Not on filedocumented in this encounter Care Teams Tube Cutter Relationship Specialty Start Date End Date Raghu Mena MD [address] [place] [address] PCP - General 09/17/17 06/22/24 documented as of this encounter
== END 2025-03-23 13:28 | disposition home or self-care (01) ==
LOC: HO.HPSW 12:47
PROVIDERS: PCP Internal Medicine; Visit Provider Nurse Practitioner Family
DX: J45.909 Unspecified asthma, uncomplicated (principal); Z91.09 Other allergy status, other than to drugs and biological substances
CPT/HCPCS: 99214